=== PATIENT | male | born 1980 | race Caucasian/White ===

== ENCOUNTER 2023-10-08 16:23 | Emergency (ER) | payer BC ==
[~2023-10-08] VITALS: Ht 157.5 cm; Wt 88.0 kg
[2023-10-08] MEDS ORDERED: HYDROCODONE/APAP 5/325MG TABLET ONE (16:55)
[2023-10-08] MEDS ORDERED: IBUPROFEN 400 MG TABLET ONE (16:56)
[2023-10-08] MEDS: IBUPROFEN 400 MG TABLET PO ONE (16:58)
[2023-10-08] MEDS: HYDROCODONE/APAP 5/325MG TABLET PO ONE (16:58)
[2023-10-08] MEDS ORDERED: IBUP-1957 PO (18:01)
[2023-10-08] MEDS ORDERED: ACET-2605 PO (18:01)
[2023-10-08] MEDS ORDERED: HYDR-4303 PO (18:01)
[2023-10-08 18:28] VITALS: BP 120/88; TEMP 97.5; O2SAT 98
== END 2023-10-08 18:31 | disposition home or self-care (01) ==
LOC: ER 16:25
DX: S59.291A Other physeal fracture of lower end of radius, right arm, initial encounter for closed fracture (principal); I10 Essential (primary) hypertension; Z79.899 Other long term (current) drug therapy; V89.2XXA Person injured in unspecified motor-vehicle accident, traffic, initial encounter; Y93.89 Activity, other specified; Y92.89 Other specified places as the place of occurrence of the external cause; Y99.8 Other external cause status
CPT/HCPCS: 73090-TC; 73110